=== PATIENT | female | born 1995 | race Caucasian/White ===

== ENCOUNTER 2018-02-17 08:30 | Emergency (ER) | payer MEDICAID, OTHER ==
[~2018-02-17 08:30] MED LIST: BACDS PO; CIP500 PO; PHENA200 PO
--- NOTE | 2018-02-17 08:32 | ER Report ---
History and Physical Time Seen By MD: 08:32 HPI/ROS CHIEF COMPLAINT: Possible urinary tract infection HISTORY OF PRESENT ILLNESS: Patient is a 22-year-old female who presents emergency Department with left lower quadrant abdominal pain along with decreased urinary frequency. She was seen in urgent care a few days ago diagnosed with urinary tract infection and started on ciprofloxacin but has not improved. She's been having subjective fevers and chills. She reports nausea but no vomiting. REVIEW OF SYSTEMS: Respiratory: No cough, no dyspnea. Cardiovascular: No chest pain, no palpitations. Gastrointestinal: Nausea, no vomiting Musculoskeletal: No back pain. Allergies: Coded Allergies: No Known Drug Allergies (Verified , 06/20/10) Home Meds Active Scripts Ondansetron Hcl (ZOFRAN) 4 Mg Tablet, 4 MG PO Q8H for Nausea, #15 TAB 0 Refills Prov:EMILIANO JIN MD 02/17/18 Cephalexin (KEFLEX) 500 Mg Capsule, 500 MG PO Q6H, #20 CAP 0 Refills TAKE ONE CAPSULE BY MOUTH EVERY SIX HOURS Prov:EMILIANO JIN MD 02/17/18 Reported Medications Ondansetron Hcl (ZOFRAN) 4 Mg Tablet, 4 MG PO Q12H, TAB 02/17/18 Ciprofloxacin (Cipro) 500 Mg Tab, 500 MG PO BID, #20 0 Refills 07/22/10 Discontinued Reported Medications Phenazopyridine Hcl (Pyridium) 200 Mg Tab, 200 MG PO TID, #15 0 Refills 07/22/10 Past Medical/Surgical History Noncontributory Hx Smoking: No Constitutional Vital Sign - Last 24 Hours 02/17/18 02/17/18 02/17/18 02/17/18 08:35 08:40 09:00 09:30 Temp 98.7 Pulse 86 78 79 Resp 20 B/P (MAP) 139/88 139/88 (105) 128/79 (95) 128/82 (97) Pulse Ox 93 92 92 O2 Delivery Room Air 02/17/18 02/17/18 02/17/18 09:35 10:30 10:35 Pulse 78 72 B/P (MAP) 125/74 (91) Pulse Ox 92 92 Physical Exam General Appearance: The patient is alert, has no immediate need for airway protection and no current signs of toxicity. Eyes: Pupils equal and round no injection. Respiratory: Chest is non tender, lungs are clear to auscultation. Cardiac: regular rate and rhythm Gastrointestinal: Abdomen is soft and non tender, no masses, bowel sounds normal. Musculoskeletal: Neck: Neck is supple and non tender. Extremities have full range of motion and are non tender. Skin: No rashes or lesions. Medical Decision Making Data Points Result Diagram: 02/17/18 0935 02/17/18 0935 Laboratory Hematology Test 02/17/18 08:48 02/17/18 09:35 Urine Color Yellow Urine Clarity Slightly-cloudy Urine pH 5.0 pH (4.8-9.5) Urine Specific [place] 1.017 Urine Protein 30 mg/dL (NEGATIVE) Urine Glucose (UA) Negative mg/dL (NEGATIVE) Urine Ketones 80 mg/dL (NEGATIVE) Urine Blood Small (NEGATIVE) Urine Nitrite Negative (NEGATIVE) Urine Bilirubin Negative (NEGATIVE) Urine Urobilinogen Negative mg/dL (0.2-1.9) Urine Leukocyte Esterase Small (NEGATIVE) Urine RBC 3 /HPF (0-2/HPF) Urine WBC 19 /HPF (0-5/HPF) Urine Squamous Epithelial Cells Many /LPF (</=FEW) Urine Transitional Epithelial Cells Few /LPF (NONE-FEW) Urine Bacteria Negative /HPF (NONE-FEW) Urine Mucus Few /HPF (NONE-FEW) Urine HCG, Qualitative Negative (NEGATIVE) Red Blood Count 4.71 M/uL (4.17-5.56) Mean Corpuscular Volume 88.0 fL (80.0-96.0) Mean Corpuscular Hemoglobin 31.2 pg (26.0-33.0) Mean Corpuscular Hemoglobin Concent 35.5 g/dL (32.0-36.0) Red Cell Distribution Width 13.1 % (11.5-14.5) Mean Platelet Volume 8.0 fL (7.2-11.1) Neutrophils (%) (Auto) 71.6 % (39.4-72.5) Lymphocytes (%) (Auto) 15.3 % (17.6-49.6) Monocytes (%) (Auto) 12.6 % (4.1-12.4) Eosinophils (%) (Auto) 0.1 % (0.4-6.7) Basophils (%) (Auto) 0.4 % (0.3-1.4) Nucleated RBC Relative Count (auto) 0.0 /100WBC Neutrophils # (Auto) 6.3 K/uL (2.0-7.4) Lymphocytes # (Auto) 1.4 K/uL (1.3-3.6) Monocytes # (Auto) 1.1 K/uL (0.3-1.0) Eosinophils # (Auto) 0.0 K/uL (0.0-0.5) Basophils # (Auto) 0.0 K/uL (0.0-0.1) Nucleated RBC Absolute Count (auto) 0.00 K/uL Sodium Level 136 mmol/L (137-145) Potassium Level 3.6 mmol/L (3.5-5.0) Chloride Level 99 mmol/L (98-107) Carbon Dioxide Level 21 mmol/L (22-31) Blood Urea Nitrogen 14 mg/dl (7-18) Creatinine 0.90 mg/dl (0.52-1.04) Glomerular Filtration Rate Calc > 60.0 Random Glucose 79 mg/dl (75-110) Calcium Level 9.4 mg/dl (8.4-10.2) Total Bilirubin 0.5 mg/dl (0.2-1.3) Aspartate Amino Transf (AST/SGOT) 30 U/L (0-35) Alanine Aminotransferase (ALT/SGPT) 38 U/L (0-56) Alkaline Phosphatase 99 U/L (0-126) Total Protein 7.8 g/dl (6.3-8.2) Albumin 3.9 g/dl (3.5-5.0) Lipase 86 U/L (23-300) Chemistry Test 02/17/18 08:48 02/17/18 09:35 Urine Color Yellow Urine Clarity Slightly-cloudy Urine pH 5.0 pH (4.8-9.5) Urine Specific [place] 1.017 Urine Protein 30 mg/dL (NEGATIVE) Urine Glucose (UA) Negative mg/dL (NEGATIVE) Urine Ketones 80 mg/dL (NEGATIVE) Urine Blood Small (NEGATIVE) Urine Nitrite Negative (NEGATIVE) Urine Bilirubin Negative (NEGATIVE) Urine Urobilinogen Negative mg/dL (0.2-1.9) Urine Leukocyte Esterase Small (NEGATIVE) Urine RBC 3 /HPF (0-2/HPF) Urine WBC 19 /HPF (0-5/HPF) Urine Squamous Epithelial Cells Many /LPF (</=FEW) Urine Transitional Epithelial Cells Few /LPF (NONE-FEW) Urine Bacteria Negative /HPF (NONE-FEW) Urine Mucus Few /HPF (NONE-FEW) Urine HCG, Qualitative Negative (NEGATIVE) White Blood Count 8.9 k/uL (4.5-11.0) Red Blood Count 4.71 M/uL (4.17-5.56) Hemoglobin 14.7 g/dL (12.0-16.0) Hematocrit 41.5 % (34.0-47.0) Mean Corpuscular Volume 88.0 fL (80.0-96.0) Mean Corpuscular Hemoglobin 31.2 pg (26.0-33.0) Mean Corpuscular Hemoglobin Concent 35.5 g/dL (32.0-36.0) Red Cell Distribution Width 13.1 % (11.5-14.5) Platelet Count 282 K/uL (150-450) Mean Platelet Volume 8.0 fL (7.2-11.1) Neutrophils (%) (Auto) 71.6 % (39.4-72.5) Lymphocytes (%) (Auto) 15.3 % (17.6-49.6) Monocytes (%) (Auto) 12.6 % (4.1-12.4) Eosinophils (%) (Auto) 0.1 % (0.4-6.7) Basophils (%) (Auto) 0.4 % (0.3-1.4) Nucleated RBC Relative Count (auto) 0.0 /100WBC Neutrophils # (Auto) 6.3 K/uL (2.0-7.4) Lymphocytes # (Auto) 1.4 K/uL (1.3-3.6) Monocytes # (Auto) 1.1 K/uL (0.3-1.0) Eosinophils # (Auto) 0.0 K/uL (0.0-0.5) Basophils # (Auto) 0.0 K/uL (0.0-0.1) Nucleated RBC Absolute Count (auto) 0.00 K/uL Glomerular Filtration Rate Calc > 60.0 Calcium Level 9.4 mg/dl (8.4-10.2) Total Bilirubin 0.5 mg/dl (0.2-1.3) Aspartate Amino Transf (AST/SGOT) 30 U/L (0-35) Alanine Aminotransferase (ALT/SGPT) 38 U/L (0-56) Alkaline Phosphatase 99 U/L (0-126) Total Protein 7.8 g/dl (6.3-8.2) Albumin 3.9 g/dl (3.5-5.0) Lipase 86 U/L (23-300) Urinalysis Test 02/17/18 08:48 Urine Color Yellow Urine Clarity Slightly-cloudy Urine pH 5.0 pH (4.8-9.5) Urine Specific [place] 1.017 Urine Protein 30 mg/dL (NEGATIVE) Urine Glucose (UA) Negative mg/dL (NEGATIVE) Urine Ketones 80 mg/dL (NEGATIVE) Urine Blood Small (NEGATIVE) Urine Nitrite Negative (NEGATIVE) Urine Bilirubin Negative (NEGATIVE) Urine Urobilinogen Negative mg/dL (0.2-1.9) Urine Leukocyte Esterase Small (NEGATIVE) Urine RBC 3 /HPF (0-2/HPF) Urine WBC 19 /HPF (0-5/HPF) Urine Squamous Epithelial Cells Many /LPF (</=FEW) Urine Transitional Epithelial Cells Few /LPF (NONE-FEW) Urine Bacteria Negative /HPF (NONE-FEW) Urine Mucus Few /HPF (NONE-FEW) Urine HCG, Qualitative Negative (NEGATIVE) EKG/Imaging Imaging FACILITY: [facility] [place] PATIENT NAME: Gunnar Fernández : 1995 MR: [id number] V: [id number] EXAM DATE: [id number] ORDERING PHYSICIAN: EMILIANO JIN TECHNOLOGIST: Location: [facility] Patient: Gunnar Fernández : 1995 Visit/Account:[id number] Date of Sevice: 02/17/2018 ABDOMEN/PELVIS WITH CONTRAST HISTORY: llq pain TECHNIQUE: CT abdomen and pelvis 75 cc of Isovue 370 IV. One of the following dose optimization techniques was utilized in the performance of this exam: automated exposure control; adjustment of the mA and/or kV according to the patient's size; or use of an iterative reconstruction technique. Specific details can be referenced in the facility's radiology CT exam operational policy. COMPARISON: None. FINDINGS: Liver/gallbladder: The liver demonstrates normal enhancement. Gallbladder is unremarkable. Spleen: Normal. Adrenals: Normal. Pancreas: Normal enhancement without evidence of mass. Kidneys/: Wedge-shaped area decreased enhancement is seen in the upper pole of the left kidney. There is no evidence of a left ureteral calculus. Right kidney and right ureter are normal. Pelvis: Urinary bladder, uterus, both ovaries are normal. GI: There is no focal abnormality in the small bowel or colon. Vessels/spaces/nodes: Negative. Bones/soft tissues: There are no lytic or blastic bone lesions. Soft tissues are normal. Visualized lung bases: Clear. IMPRESSION: 1. Wedge-shaped area of decreased enhancement of the upper pole left kidney. Differential diagnosis favors pyelonephritis. 2. Otherwise normal CT abdomen and pelvis. This was called by Dr. Cortez to EMILIANO JIN on 02/17/2018 10:20 AM Report Dictated By: Maxim Cortez at 02/17/2018 10:20 AM Report E-Signed By: Maxim Cortez at 02/17/2018 10:25 AM WSN:[email or web address] ED Course/Re-evaluation ED Course 02/17/2018 9:34:28 am plan at this time will be to place an IV and check CBC electrolytes repeat urine test and culture. I will also obtain CT scan of the abdomen and pelvis with IV contrast. Re-evaluation 02/17/2018 12:00:01 pm patient improved will discharge home Decision to Disposition Date: Feb 17, 2018 Decision to Disposition Time: 11:59 Depart Departure Latest Vital Signs Vital Signs Date Time Temp Pulse Resp B/P (MAP) Pulse Ox O2 Delivery O2 Flow Rate FiO2 02/17/18 10:35 72 92 02/17/18 10:30 125/74 (91) 02/17/18 08:35 98.7 20 Room Air Impression: Primary Impression: Pyelonephritis Condition: Improved Disposition: HOME OR SELF-CARE New Scripts Ondansetron Hcl (ZOFRAN) 4 Mg Tablet 4 MG PO Q8H for Nausea, #15 TAB 0 Refills Prov: EMILIANO JIN MD 02/17/18 Cephalexin (KEFLEX) 500 Mg Capsule 500 MG PO Q6H, #20 CAP 0 Refills TAKE ONE CAPSULE BY MOUTH EVERY SIX HOURS Prov: EMILIANO JIN MD 02/17/18 Departure Forms: ER Transition Record, Medications Reconciliation, Off Work/School Form, School or Work Release?: Work Number of days to be released: 2 Patient Portal Information Patient Instructions: Urinary Tract Infection in Women (DC) Additional Instructions: discontinue use of the ciprofloxacin; start keflex and take as directed EMILIANO JIN MD Feb 17, 2018 08:32
[2018-02-17] MEDS ORDERED: ONDA4TAB97 PO ×2 (08:41→11:27)
[2018-02-17] MEDS ORDERED: NS(*) 0.9% 1000 ML BAG 1,000 ML IV ONE ×2 (09:19→11:15)
[2018-02-17] MEDS ORDERED: ONDANSETRON 4 MG/2 ML VIAL IVP ONE (09:20)
[2018-02-17] MEDS ORDERED: KETOROLAC 30 MG/ML VIAL IVP ONE (09:20)
[2018-02-17] MEDS ORDERED: IOPAMIDOL 76% 75 ML INFUS BTL 75 ML ONE (09:39)
[2018-02-17 10:03] LABS: PLATELET COUNT, AUTOMATED 282 K/uL (150-450)
--- NOTE | 2018-02-17 10:30 | RADIOLOGY IMAGING REPORT ---
FACILITY: [facility] PATIENT NAME: Gunnar Fernández : 1995 MR: [id number] V: [id number] EXAM DATE: ORDERING PHYSICIAN: EMILIANO JIN TECHNOLOGIST: Location: [facility] Patient: Gunnar Fernández : 1995 Visit/Account:[id number] Date of Sevice: 02/17/2018 ABDOMEN/PELVIS WITH CONTRAST HISTORY: llq pain TECHNIQUE: CT abdomen and pelvis 75 cc of Isovue 370 IV. One of the following dose optimization vidal hniques was utilized in the performance of this exam: automated exposure control; adjustment of the m A and/or kV according to the patient's size; or use of an iterative reconstruction technique. Specif ic details can be referenced in the facility's radiology CT exam operational policy. COMPARISON: None. FINDINGS: Liver/gallbladder: The liver demonstrates normal enhancement. Gallbladder is unremarkable. Spleen: Normal. Adrenals: Normal. Pancreas: Normal enhancement without evidence of mass. Kidneys/: Wedge-shaped area decreased enhancement is seen in the upper pole of the left kidney. T here is no evidence of a left ureteral calculus. Right kidney and right ureter are normal. Pelvis: Urinary bladder, uterus, both ovaries are normal. GI: There is no focal abnormality in the small bowel or colon. Vessels/spaces/nodes: Negative. Bones/soft tissues: There are no lytic or blastic bone lesions. Soft tissues are normal. Visualized lung bases: Clear. IMPRESSION: 1. Wedge-shaped area of decreased enhancement of the upper pole left kidney. Differential diagnosis favors pyelonephritis. 2. Otherwise normal CT abdomen and pelvis. This was called by Dr. Cortez to EMILIANO JIN on 02/17/2018 10:20 AM Report Dictated By: Maxim Cortez at 02/17/2018 10:20 AM Report E-Signed By: Maxim Cortez at 02/17/2018 10:25 AM WSN:[email or web address]
[2018-02-17] MEDS ORDERED: cefTRIAXone 1 GM VIAL IVP ONE (10:35)
[2018-02-17] MEDS ORDERED: CEPH-13 PO (11:27)
[2018-02-17 11:30] VITALS: BP 120/71
== END 2018-02-17 11:45 | disposition home or self-care (01) ==
LOC: ER 08:37
DX: N12 Tubulo-interstitial nephritis, not specified as acute or chronic (principal)
CPT/HCPCS: 74177; 81001; 81025; 83690; 85025; 87088; 96361; 96374; 96375; 99284; J0696; J1885; J2405; J7030; Q9967; 82040; 82247; 82310; 82374; 82435; 82565; 82947; 84075; 84132; 84155; 84295; 84450; 84460; 84520